=== PATIENT | male | born 1995 | race Caucasian/White ===

== ENCOUNTER 2022-04-02 21:39 | Emergency (ER) | payer OTHER ==
[~2022-04-02] VITALS: Ht 175.3 cm; Wt 79.4 kg
--- NOTE | 2022-04-02 22:25 | NUR ---
Dr Hebert at bedside, MSE in progress.
[2022-04-02] MEDS ORDERED: ACETAMINOPHEN ES 500 MG TABLET PO ONE (22:30)
[2022-04-02 22:46] LABS: HEMATOCRIT 41.8 % (36.7-47.1); MEAN CORPUSCULAR VOLUME 89.6 fL (73.0-96.2); PLATELET COUNT (AUTO) 195 K/uL (152-348)
[2022-04-02 23:01] LABS: NEUTROPHILS % (MANUAL) 0 % (42-75)
[2022-04-02 23:11] LABS: CREATININE 1.1 mg/dL (0.6-1.3)
[2022-04-02] MEDS ORDERED: ACETAMINOPHEN ES 500 MG TABLET ONE (23:11)
[2022-04-02 23:17] LABS: BILIRUBIN,TOTAL 0.5 mg/dL (0.2-1.0); TOTAL PROTEIN, SERUM 7.9 g/dL (6.4-8.2)
[2022-04-03] MEDS ORDERED: OSELTAMIVIR PHOSPHATE 75 MG CAPSULE PO ONE
[2022-04-03] MEDS ORDERED: IV NORMAL SALINE 1000 ML BAG IV ONE
[2022-04-03] MEDS ORDERED: OSELTAMIVIR PHOSPHATE 75 MG CAPSULE ONE (00:01)
[2022-04-03] MEDS ORDERED: OSEL75CA PO (00:03)
[2022-04-03] MEDS ORDERED: ONDA4TAB5 PO (00:03)
[2022-04-03] MEDS ORDERED: HYDR-4209 PO (00:03)
--- NOTE | 2022-04-03 00:30 | NUR ---
Patient discharged to home in stable condition. Written and verbal after care instructions given. Patient verbalizes understanding of instructions. Stressed follow up or return to ER for worsening s/s. pt ambulated with steady gait. denies pain .no SOB. no chest pain [id number]
[2022-04-03 00:32] VITALS: BP 142/110
== END 2022-04-03 00:32 | disposition home or self-care (01) ==
LOC: ER 21:45
DX: J10.1 Influenza due to other identified influenza virus with other respiratory manifestations (principal); Z20.822 Contact with and (suspected) exposure to COVID-19
CPT/HCPCS: 36415; 71045; 80053; 85007; 85025; 87400; 87426; 96360; 99284; J7040; 70030-TC; A9150